=== PATIENT | female | born 1985 | race Caucasian/White ===

== ENCOUNTER → 2021-09-06 | Outpatient (CLI) | payer OTHER ==
--- NOTE | 2021-09-06 17:35 | RAD ---
EXAM: Left elbow, 3 views. HISTORY: Work-related injury. COMPARISON: None. FINDINGS: 3 views of the left elbow are obtained. There is no fracture, dislocation or subluxation. T here is no joint effusion. IMPRESSION: No acute osseous finding. Electronically signed by: Rosa Diaz MD (09/06/2021 5:33 PM) [id number]
--- NOTE | 2021-09-07 09:24 | RAD ---
EXAM: XR SHOULDER_LEFT 2+ VIEWS 09/06/2021 5:09 PM CLINICAL INDICATION: Injury to left arm from shoulder down. Work while its COMPARISON: None TECHNIQUE: 3 views of the left shoulder. FINDINGS: There is a suspected displaced osseous fragment measuring 1.8 x 1.7 cm along the posterior aspect of the humeral head, likely arising from the greater tuberosity. Additional small osseous fra gment or calcification along the supraspinatus footprint measuring 8 x 3 mm.. No dislocation. Glenohu meral and acromioclavicular joints are normal. IMPRESSION: 1. Suspected displaced greater tuberosity fracture with an osseous fragment along the posterior aspec t of the humeral head. 2. Smaller osseous fragment or calcification along the supraspinatus footprint could be related to th e greater tuberosity fracture or due to calcific tendinitis. Electronically signed by: Rosanna Walker MD (09/07/2021 9:21 AM) [id number]
== END ==
LOC: RAD 16:48
PROVIDERS: ATTEND Nurse Practitioner Family
DX: M25.512 Pain in left shoulder (principal); M25.522 Pain in left elbow
CPT/HCPCS: 73030; 73080